=== PATIENT | male | born 1955 | race Caucasian/White ===

== ENCOUNTER 2024-10-29 15:47 | Emergency (ER) | payer MEDICARE ==
[2024-10-29] MEDS ORDERED: Sodium Chloride 0.9% 10 ML Syringe FLUSH PRN (16:22)
[2024-10-29] MEDS: Ketamine 500 MG/5 ML MDV IV ONE (16:36)
[2024-10-29] MEDS ORDERED: Propofol 200 MG/20 ML SDV ONE (16:50)
== END 2024-10-29 18:11 | disposition home or self-care (01) ==
LOC: JP.ED 15:47
DX: S43.004A Unspecified dislocation of right shoulder joint, initial encounter (principal); Z90.49 Acquired absence of other specified parts of digestive tract; W19.XXXA Unspecified fall, initial encounter
CPT/HCPCS: 01620; 23650; 23655; 73020; 73030; 96372; 99283; J1171; J2704